=== PATIENT | female | born 1985 | race Two or more races ===

== ENCOUNTER 2024-10-01 17:31 | Emergency (ER) | payer SELFPAY ==
[2024-10-01] MEDS: Acetaminophen 500 MG Tab PO STA (17:59)
== END 2024-10-01 20:05 | disposition home or self-care (01) ==
LOC: MW.ED 17:31
DX: S00.83XA Contusion of other part of head, initial encounter (principal); Z75.8 Other problems related to medical facilities and other health care; Y04.8XXA Assault by other bodily force, initial encounter
CPT/HCPCS: 70450; 70486; 72125; 99284; A9270